=== PATIENT | female | born 1990 | race Hispanic/Latino ===

== ENCOUNTER 2019-08-17 19:13 | Emergency (ER) | payer BC, OTHER ==
[~2019-08-17] VITALS: Ht 165.1 cm; Wt 113.4 kg
[2019-08-17 19:15] VITALS: BP 152/88
--- NOTE | 2019-08-17 19:31 | NUR ---
DR URIARTE EDP ON PHONE WITH CHAPITO FOR CONSULT
--- NOTE | 2019-08-17 19:33 | NUR ---
US CALLED SPOKE WITH ASAEL JACOB FOR US, STATES SHE WILL CALL US
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
--- NOTE | 2019-08-17 19:42 | NUR ---
TO US PATIENT TO US WITH [facility],US
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
[2019-08-17 20:15] VITALS: BP 138/105
[2019-08-17 20:29] LABS: BASOPHIL % 0.1 % (0.0-0.2); EOSINOPHIL # 0.1 10^3/uL (0.0-0.2); EOSINOPHIL % 0.9 % (0.0-5.0); LYMPHOCYTES % 29.9 % (24.0-44.0); MEAN CORP HGB 29.3 pg (26-34); MONOCYTES # 0.5 10^3/uL (0.3-0.8); MONOCYTES % 5.2 % (5.0-12.0); NEUTROPHILS % 63.7 % (41.0-85.0); PLATELET COUNT 299 10^3/uL (150-400); RED CELL DISTRIBUTION WIDTH 12.1 % (11.5-14.5)
[2019-08-17 20:29] LABS: BILIRUBIN,URINE NEGATIVE (NEGATIVE); UROBILINOGEN,URINE NORMAL (NEGATIVE)
[2019-08-17 20:41] LABS: APPEARANCE,URINE CLOUDY (CLEAR); UA COLOR YELLOW (YELLOW)
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
[2019-08-17 20:46] LABS: CALCIUM 9.3 mg/dL (8.4-10.5); CARBON DIOXIDE 23.2 mmol/L (20.0-32)
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
[2019-08-17 21:15] VITALS: BP 140/82
--- NOTE | 2019-08-17 22:21 | NUR ---
DR URIARTE EDP ON PHONE WITH CHAPITO, STATES TO DISCHARGE PATIENT FROM ED AND SEND TO OB FOR OBSERVATION
[2019-08-17 22:34] VITALS: BP 131/79
== END 2019-08-17 22:30 | disposition home or self-care (01) ==
LOC: ER 19:13
DX: O9A.213 Injury, poisoning and certain other consequences of external causes complicating pregnancy, third trimester (principal); O23.43 Unspecified infection of urinary tract in pregnancy, third trimester; O26.893 Other specified pregnancy related conditions, third trimester; S30.1XXA Contusion of abdominal wall, initial encounter; R10.30 Lower abdominal pain, unspecified; E11.9 Type 2 diabetes mellitus without complications; Z88.1 Allergy status to other antibiotic agents; Z88.0 Allergy status to penicillin; Z88.2 Allergy status to sulfonamides; Z3A.32 32 weeks gestation of pregnancy; V47.5XXA Car driver injured in collision with fixed or stationary object in traffic accident, initial encounter; Y93.89 Activity, other specified; Y92.410 Unspecified street and highway as the place of occurrence of the external cause; Y99.8 Other external cause status
CPT/HCPCS: 36415; 76805; 80053; 81000; 85025; 85610; 85730; 86900; 87086; 99285

== ENCOUNTER 2019-08-17 22:35 | Observation (INO) | payer BC ==
[~2019-08-17] VITALS: Ht 165.1 cm; Wt 113.4 kg
== END 2019-08-18 00:20 | disposition home or self-care (01) ==
LOC: ATP 22:35
PROVIDERS: ADMIT Obstetrics & Gynecology; ATTEND Obstetrics & Gynecology
DX: O36.8130 Decreased fetal movements, third trimester, not applicable or unspecified (principal); O9A.213 Injury, poisoning and certain other consequences of external causes complicating pregnancy, third trimester; Z3A.30 30 weeks gestation of pregnancy; V89.2XXA Person injured in unspecified motor-vehicle accident, traffic, initial encounter; Y93.89 Activity, other specified; Y92.89 Other specified places as the place of occurrence of the external cause
CPT/HCPCS: G0378